=== PATIENT | male | born 1985 ===

== ENCOUNTER 2021-05-31 20:21 | Outpatient (REF) | payer MEDICAID, SELFPAY ==
[2021-05-31 20:50] LABS: Anion Gap 9.1 mmol/L (3-11); BUN 16 mg/dL (7-18); CO2 30.9 mmol/L (21.0-32.0); CREATININE 0.8 mg/dL (0.70-1.30); Calcium 9.6 mg/dL (8.5-10.1); Chloride 99 mmol/L (98-107); Glucose 304 mg/dL (74-106); Potassium 3.6 mmol/L (3.5-5.1); Sodium 139 mmol/L (136-145)
== END 2021-05-31 20:22 | disposition home or self-care (01) ==
LOC: LBN 20:21
PROVIDERS: Visit Provider Nurse Practitioner Family
DX: I10 Essential (primary) hypertension (principal); Z00.00 Encounter for general adult medical examination without abnormal findings
CPT/HCPCS: 80048